=== PATIENT | female | born 1970 | race African-American/Black ===

== ENCOUNTER 2019-06-02 22:01 | Emergency (ER) | payer OTHER ==
[~2019-06-02] VITALS: Ht 172.7 cm; Wt 108.9 kg
[~2019-06-02 22:01] MED LIST: DESYREL; PROZAC40 MG PO; VISTARIL
[2019-06-02] MEDS ORDERED: SERTRALINE HCL50 MG PO (22:08)
[2019-06-02] MEDS ORDERED: BUSPIRONE HCL10 MG PO (22:09)
[2019-06-03 00:28] VITALS: BP 113/78
== END 2019-06-03 00:30 | disposition home or self-care (01) ==
LOC: ER 22:01
DX: M25.562 Pain in left knee (principal); M79.605 Pain in left leg; Z88.1 Allergy status to other antibiotic agents; Z79.899 Other long term (current) drug therapy; Z98.890 Other specified postprocedural states